=== PATIENT | male | born 1955 | race Caucasian/White ===

== ENCOUNTER 2017-01-23 10:33 | Outpatient (CLI) | payer OTHER ==
[2017-01-23 12:32] LABS: Hemoglobin A1c 5.4 % (4.0-6.0)
== END 2017-01-23 10:34 | disposition home or self-care (01) ==
LOC: NAVSJIPCSP 10:33
PROVIDERS: ATTEND Internal Medicine
DX: E11.9 Type 2 diabetes mellitus without complications (principal); E78.5 Hyperlipidemia, unspecified
CPT/HCPCS: 36415; 80061; 83036

== ENCOUNTER 2017-04-16 10:03 | Outpatient (CLI) | payer OTHER ==
[2017-04-16 12:27] LABS: Hemoglobin A1c 5.2 % (4.0-6.0)
[2017-04-16 12:39] LABS: Cardiac Risk 1.9 (Less than 4.5)
== END 2017-04-16 10:04 | disposition home or self-care (01) ==
LOC: NAVSJIPCSP 10:03
PROVIDERS: ATTEND Internal Medicine
DX: E11.9 Type 2 diabetes mellitus without complications (principal); E78.5 Hyperlipidemia, unspecified
CPT/HCPCS: 36415; 80061; 83036

== ENCOUNTER 2017-07-17 09:36 | Outpatient (CLI) | payer OTHER ==
[2017-07-17 12:42] LABS: Cardiac Risk 2.1 (Less than 4.5)
[2017-07-17 13:11] LABS: Hemoglobin A1c 5.4 % (4.0-6.0)
== END 2017-07-17 09:37 | disposition home or self-care (01) ==
LOC: NAVSJIPCSP 09:36
PROVIDERS: ATTEND Internal Medicine
DX: E78.5 Hyperlipidemia, unspecified (principal); E11.9 Type 2 diabetes mellitus without complications; Z79.899 Other long term (current) drug therapy
CPT/HCPCS: 36415; 80061; 83036